=== PATIENT | female | born 1975 | race Asian ===

== ENCOUNTER 2022-04-15 14:05 | Emergency (ER) | payer MEDICAID ==
[~2022-04-15] VITALS: Ht 160 cm; Wt 51.4 kg
[2022-04-15 14:13] VITALS: BP 97/62
[2022-04-15] MEDS ORDERED: ketorolac trometh inj. 60 MG/2 ML VIAL IM ONE (15:30)
== END 2022-04-15 15:49 | disposition home or self-care (01) ==
LOC: ER 14:06
DX: S52.601A Unspecified fracture of lower end of right ulna, initial encounter for closed fracture (principal); F17.200 Nicotine dependence, unspecified, uncomplicated; Y04.0XXA Assault by unarmed brawl or fight, initial encounter; Y93.89 Activity, other specified; Y92.89 Other specified places as the place of occurrence of the external cause; Y99.8 Other external cause status
CPT/HCPCS: 29125; 73110; 96372; 99283; J1885; A4565; A6449

== ENCOUNTER 2022-12-13 11:13 | Emergency (ER) | payer MEDICAID ==
[~2022-12-13] VITALS: Ht 162.6 cm; Wt 54.5 kg
[2022-12-13] MEDS ORDERED: ibuprofen tablet 400 MG TABLET PO ONE (11:55)
[2022-12-13 12:31] VITALS: BP 124/51
== END 2022-12-13 14:40 | disposition home or self-care (01) ==
LOC: ER 11:13
DX: M25.531 Pain in right wrist (principal); M25.521 Pain in right elbow; M25.522 Pain in left elbow; V19.9XXA Pedal cyclist (driver) (passenger) injured in unspecified traffic accident, initial encounter; Y93.89 Activity, other specified; Y92.89 Other specified places as the place of occurrence of the external cause; Y99.8 Other external cause status
CPT/HCPCS: 73080; 73110; 99284